=== PATIENT | female | born 1965 | race African-American/Black ===

== ENCOUNTER 2016-12-26 12:07 | Emergency (ER) | payer OTHER ==
[2016-12-26 12:13] VITALS: BMI 35.2
--- NOTE | 2016-12-26 12:28 | PDOC ---
History of Present Illness - General Chief Complaint: Chest Pain Stated Complaint: LEFT SHL SENSATION Time Seen by Provider: 12/26/16 12:12 - History of Present Illness Initial Comments: 12/26/16 17:42 Chief complaint: Difficulty breathing History of present illness: While sitting at work today, the patient experienced a sensation that she "could not take a deep breath", felt flushed, and felt tightness in her left chest. This lasted several minutes and resolved spontaneously. She has a history of anxiety, panic disorder, PTSD. Review of systems: Denies nausea, diaphoresis, recent URI, cough, sore throat, abdominal pain, vomiting or diarrhea, visual or focal neurologic symptoms, unsteadiness of gait. Remainder systems reviewed and found to be negative Past medical history: Lumpectomy 2003 for breast cancer, chemotherapy and radiation, followed regularly without recurrence. Hysterectomy for dysfunctional uterine bleeding. Social history: Anxiety disorder as discussed for. This is improved with her new job. No tobacco alcohol or nonprescription drugs. Fully active and without disability Family history: Reviewed and noncontributory including early coronary artery disease, metabolic disease including diabetes, and cancer Physical exam: Alert and oriented 3, well-developed well-nourished, no acute distress, cheerful and cooperative. No chest pain or shortness of breath at present Afebrile, vital signs normal PERRLA, fundi benign, ENT clear Neck supple without bruit mass or nodes Chest clear with full breath sounds throughout bilaterally, no splinting with deep inspiration, no wheezes rales or rhonchi, no tachypnea or dyspnea CV S1 and S2 normal without murmur rub or gallop pulses full and symmetric no JVD or edema regular 80/m Abdomen soft nontender without mass or organomegaly. Extremities no CCE Skin clear, no rash, adequate turgor and what mucous membranes Neurological C2 to 12 intact. Strength full and symmetric. No focal sensory or motor deficits. Gait stable and unimpaired Impression: Probable anxiety/hyperventilation. Signs and symptoms are not consistent with cardiac etiology, and risk factors are negligible Plan: EKG and enzymes, CBC and chemistry, observation. Past History - Past Medical History Allergies/Adverse Reactions: Allergies Allergy/AdvReac Type Severity Reaction Status Date / Time mold Allergy Verified 12/26/16 12:09 No Known Drug Allergies Allergy Verified 12/26/16 12:09 pollen extracts Allergy Verified 02/06/17 12:09 NUTS Allergy Severe Difficulty Uncoded 12/26/16 12:09 Breathing DUST Allergy Uncoded 12/26/16 12:09 Home Medications: Ambulatory Orders NK [No Known Home Medication] 12/26/16 Anemia: Yes (IRON DEFICIENCY ANEMIA) Asthma: Yes Cancer: Yes (RIGHT BREAST) Cardiac Disorders: Yes CVA: No CHF: No Dementia: No Diabetes: No GI Disorders: Yes (GERD/REFLUX,HIATAL HERNIA) Disorders: No HTN: No Hypercholesterolemia: No Liver Disease: No Psychiatric Problems: Yes (PTSD) Seizures: No Thyroid Disease: No - Surgical History Abdominal Surgery: Yes (GASTRIC BYPASS, Hernia Mesh) Appendectomy: No Cardiac Surgery: No Cholecystectomy: No Lung Surgery: No Neurologic Surgery: No Orthopedic Surgery: No - Family Disease History Family Disease History: CA: Grandparents - Immunization History Td Vaccination: Yes TDAP Vaccination: Yes Immunization Up to Date: Yes - Psycho/Social/Smoking Cessation Hx Anxiety: No Suicidal Ideation: No Smoking Status: No Smoking History: Never smoked Have you smoked in the past 12 months: No Number of Cigarettes Smoked Daily: 0 If you are a former smoker, when did you quit?: 13 years ago Cigars Per Day: 0 Hx Alcohol Use: Yes Drug/Substance Use Hx: No Substance Use Type: Alcohol Hx Substance Use Treatment: No Cardiac Specific PMH - Complaint Specific PMHX Abdominal Aortic Aneurysm: No Angina: No Cardiac Arrhythmia: No Cardiac Stent: No GERD: No Pacemaker: No Pulmonary Embolus: No Valvular Heart Disease: No Peripheral Vascular Disease: No *Physical Exam - Vital Signs Last Vital Signs Temp Pulse Resp BP Pulse Ox 71 18 128/70 98 12/26/16 13:10 12/26/16 13:10 12/26/16 13:10 12/26/16 13:10 ED Treatment Course - LABORATORY CBC & Chemistry Diagram: 12/26/16 12:59 12/26/16 12:55 - ADDITIONAL ORDERS Additional order review: Laboratory Results 12/26/16 12/26/16 12/26/16 12:59 12:59 12:59 INR Cancelled Sodium Cancelled Potassium Cancelled Chloride Cancelled Carbon Dioxide Cancelled Anion Gap Cancelled BUN Cancelled Creatinine Cancelled Creat Clearance w eGFR Cancelled Random Glucose Cancelled Calcium Cancelled Total Bilirubin Cancelled AST Cancelled ALT Cancelled Alkaline Phosphatase Cancelled Creatine Kinase Cancelled Troponin I Cancelled Total Protein Cancelled Albumin Cancelled 12/26/16 12/26/16 12/26/16 12:55 12:55 12:25 INR Sodium 136 Potassium 4.1 Chloride 102 Carbon Dioxide 26 Anion Gap 8 BUN 17 D Creatinine 0.8 D Creat Clearance w eGFR > 60 Random Glucose 96 Calcium 10.1 Total Bilirubin 0.4 D AST 28 D ALT 19 D Alkaline Phosphatase 65 D Creatine Kinase 120 Cancelled Troponin I < 0.03 L Cancelled Total Protein 7.3 Albumin 4.3 12/26/16 12/26/16 12:25 12:25 INR Cancelled Sodium Cancelled Potassium Cancelled Chloride Cancelled Carbon Dioxide Cancelled Anion Gap Cancelled BUN Cancelled Creatinine Cancelled Creat Clearance w eGFR Cancelled Random Glucose Cancelled Calcium Cancelled Total Bilirubin Cancelled AST Cancelled ALT Cancelled Alkaline Phosphatase Cancelled Creatine Kinase Troponin I Total Protein Cancelled Albumin Cancelled 12/26/16 12/26/16 12:59 12:25 RBC 4.48 Cancelled MCV 86.6 Cancelled MCHC 32.9 Cancelled RDW 13.6 Cancelled MPV 9.5 D Cancelled Neutrophils % 58.1 Cancelled Lymphocytes % 28.8 Cancelled Monocytes % 5.7 Cancelled Eosinophils % 5.7 H D Cancelled Basophils % 1.7 Cancelled Medical Decision Making - Medical Decision Making 12/26/16 15:27 EKG reviewed: Normal sinus rhythm 79/m. Normal axes and intervals. No ST-T wave changes. Normal EKG Laboratories reviewed. No significant abnormalities. Normal cardiac enzymes Patient remained stable. No further symptoms during observation. Reassured. Return to ER if symptoms recur. Otherwise follow-up with primary physician Patient fully ambulatory and in no pain or other discomfort upon discharge with her daughter to follow-up as needed. 12/26/16 17:47 *DC/Admit/Observation/Transfer Diagnosis at time of Disposition: Chest pain, non-cardiac - Discharge Dispostion Disposition: HOME Condition at time of disposition: Improved Admit: No - Patient Instructions Printed Discharge Instructions: DI for Atypical Chest Pain - Post Discharge Activity Work/School Note: Back to Work
[2016-12-26 13:30] LABS: BASOPHIL 1.7 % (0-2.0); EOSINOPHIL 5.7 % (0-4.5); MCH 28.5 pg (25.7-33.7); MCHC 32.9 g/dl (32.0-36.0); MEAN CELL VOLUME 86.6 fl (80-96); MEAN PLT VOLUME 9.5 fl (7.5-11.1); NEUTROPHILS 58.1 % (42.8-82.8); PLATELET COUNT 306 K/MM3 (134-434); RDW 13.6 % (11.6-15.6); WHITE BLOOD COUNT 4.9 K/mm3 (4.0-10.0)
[2016-12-26 14:23] LABS: ALBUMIN 4.3 g/dl (3.5-5.0); ALK PHOS 65 U/L (32-92); ANION GAP 8 (8-16); BILIRUBIN,TOTAL 0.4 mg/dl (0.2-1.0); CALCIUM 10.1 mg/dl (8.4-10.2); CO2 26 mmol/L (22-28); CPK(DFH) 120 IU/L (26-140); CREATININE 0.8 mg/dl (0.6-1.3); GLUCOSE,RANDOM 96 mg/dl (74-106); SGOT/AST 28 U/L (10-42); SGPT/ALT 19 U/L (10-40); TOT PROT 7.3 g/dl (6.4-8.3)
[2016-12-26 14:48] LABS: TROPONIN I (DFP) < 0.03 ng/ml (0.03-0.50)
[2016-12-26 14:52] VITALS: BP 128/70; PULSE 71
--- NOTE | 2016-12-26 15:45 | EKG ---
Test Reason : Blood Pressure : / mmHG Vent. Rate : 079 BPM Atrial Rate : 079 BPM P-R Int : 136 ms QRS Dur : 076 ms QT Int : 396 ms P-R-T Axes : 072 015 019 degrees QTc Int : 454 ms SINUS RHYTHM EARLY REPOLARIZATION WHEN COMPARED WITH ECG OF 13-DEC-2015 14:32, NO SIGNIFICANT CHANGE WAS FOUND Confirmed by SOWMYA CASTANON MD ([id number]) on 12/26/2016 3:44:32 PM Referred By: AMANDA BAILEY Confirmed By:SOWMYA CASTANON MD
== END 2016-12-26 15:32 | disposition home or self-care (01) ==
LOC: FER 12:07
DX: R07.89 Other chest pain (principal); Z98.84 Bariatric surgery status; F41.9 Anxiety disorder, unspecified; F43.10 Post-traumatic stress disorder, unspecified; Z85.3 Personal history of malignant neoplasm of breast; K21.9 Gastro-esophageal reflux disease without esophagitis; Z87.891 Personal history of nicotine dependence
CPT/HCPCS: 36415; 80053; 82550; 84484; 85025; 93005; 99283-25

== ENCOUNTER 2017-03-29 20:32 | Emergency (ER) | payer OTHER ==
[2017-03-29 20:51] VITALS: BP 139/85; PULSE 69; TEMP 97.9; BMI 35.6
--- NOTE | 2017-03-29 22:35 | PDOC ---
History of Present Illness - General Chief Complaint: Nausea Stated Complaint: EXPOSURE TO VERMIN BY PRODUCT Time Seen by Provider: 03/29/17 21:55 History Source: Patient Exam Limitations: No Limitations - History of Present Illness Initial Comments: 03/29/17 22:41 Chief complaint: Concern regarding exposure to harm to virus Patient 52-year-old female, history of prior breast cancer, no treatment now who lives in a apartment where there is an issue with rats under the deck, and the state is now involved and they're taking it up and taking up the Flip and she is concerned because she feels like it's going through the air and she' s having a reaction to it, although she does not have any fever, shortness of breath, she feels like she can smell it and feel it. Not staying there now. GENERAL/CONSTITUTIONAL: No fever, weakness. dizziness HEAD, EYES, EARS, NOSE AND THROAT: No change in vision. No ear pain or discharge. No sore throat. CARDIOVASCULAR: No chest pain RESPIRATORY: No shortness of breath or cough GASTROINTESTINAL: No pain, nausea, vomiting, diarrhea or constipation GENITOURINARY: No dysuria MUSCULOSKELETAL: No neck or back pain SKIN: No rash NEUROLOGIC: No headache, vertigo, loss of consciousness, or loss of sensation. GENERAL: The patient is awake, alert, and fully oriented, in no acute distress. HEAD: Normal with no signs of trauma. EYES: Pupils equal, round and reactive to light, sclera anicteric, conjunctiva clear. ENT: pharynx: no erythema, no exudate, uvula midline NECK: supple CHEST: clear, nontender, rr ABD: soft, nontender EXTREMITIES: Normal range of motion, no edema. NEUROLOGICAL: Normal speech, normal gait. SKIN: Warm, Dry Past History - Past Medical History Allergies/Adverse Reactions: Allergies Allergy/AdvReac Type Severity Reaction Status Date / Time mold Allergy Verified 03/29/17 20:51 No Known Drug Allergies Allergy Verified 03/29/17 20:51 pollen extracts Allergy Verified 03/29/17 20:51 NUTS Allergy Severe Difficulty Uncoded 03/29/17 20:51 Breathing DUST Allergy Uncoded 03/29/17 20:51 Home Medications: Ambulatory Orders NK [No Known Home Medication] 12/26/16 Anemia: Yes (IRON DEFICIENCY ANEMIA) Asthma: Yes Cancer: Yes (RIGHT BREAST) Cardiac Disorders: Yes CVA: No CHF: No Dementia: No Diabetes: No GI Disorders: Yes (GERD/REFLUX,HIATAL HERNIA) Disorders: No HTN: No Hypercholesterolemia: No Liver Disease: No Psychiatric Problems: Yes (PTSD) Seizures: No Thyroid Disease: No - Surgical History Abdominal Surgery: Yes (GASTRIC BYPASS, Hernia Mesh) Appendectomy: No Cardiac Surgery: No Cholecystectomy: No Lung Surgery: No Neurologic Surgery: No Orthopedic Surgery: No - Family Disease History Family Disease History: [place]: Grandparents - Immunization History Td Vaccination: Yes TDAP Vaccination: Yes Immunization Up to Date: Yes - Psycho/Social/Smoking Cessation Hx Anxiety: No Suicidal Ideation: No Smoking Status: No Smoking History: Never smoked Have you smoked in the past 12 months: No Number of Cigarettes Smoked Daily: 0 If you are a former smoker, when did you quit?: 13 years ago Cigars Per Day: 0 Hx Alcohol Use: No Drug/Substance Use Hx: No Substance Use Type: Alcohol Hx Substance Use Treatment: No *Physical Exam - Vital Signs Last Vital Signs Temp Pulse Resp BP Pulse Ox 97.9 F 69 20 139/85 100 03/29/17 20:48 03/29/17 20:48 03/29/17 20:48 03/29/17 20:48 03/29/17 20:48 Medical Decision Making - Medical Decision Making 03/29/17 22:43 Patient with concern of being exposed to hot to virus from rat Flip and rats under the deck being dug up now. Patient had had some nausea on and off from the odor and concerned it's getting into her body. Discussed with poison control in [facility], they concurred that there are specialized blood tests that can be done to verify whether there was exposure or not. Not have respiratory symptoms, or findings that shows necessity for a chest x-ray tonight. Patient will follow-up with infectious disease doctors tomorrow, discuss with [facility] today and [facility] to make sure proper testing is done. *DC/Admit/Observation/Transfer Diagnosis at time of Disposition: Exposure Qualifiers: Encounter type: initial encounter Qualified Code(s): T75.89XA - Other specified effects of external causes, initial encounter - Discharge Dispostion Disposition: HOME Condition at time of disposition: Stable Admit: No - Referrals Referrals: Chinedu Salcido MD [Primary Care Provider] - Juan Daniel Moore MD [Staff Physician] - Sweta Grajeda MD [Staff Physician] - Vin Meraz MD [Staff Physician] - - Patient Instructions Additional Instructions: You can follow-up with one of the infectious disease doctors listed, discuss further with [facility] or [facility] to get proper testing done for possible exposure from the rats
== END 2017-03-29 22:37 | disposition home or self-care (01) ==
LOC: JERFT 20:32
DX: Z77.29 Contact with and (suspected) exposure to other hazardous substances (principal); B88.8 Other specified infestations; Z85.3 Personal history of malignant neoplasm of breast; K21.9 Gastro-esophageal reflux disease without esophagitis; F43.10 Post-traumatic stress disorder, unspecified
CPT/HCPCS: 99281-25

== ENCOUNTER 2017-05-15 08:08 | Day surgery (SDC) | payer OTHER ==
[2017-05-10 11:15] VITALS: BMI 34.8
[2017-05-15] MEDS ORDERED: PROPOFOL 20 ML ONE ×2 (08:14)
[2017-05-15] MEDS ORDERED: LIDOCAINE HCL/PF 2% SDV 5ML VIAL ONE (08:15)
[2017-05-15 10:14] VITALS: TEMP 98.3
[2017-05-15 10:35] VITALS: BP 120/71; PULSE 69
--- NOTE | 2017-05-17 11:19 | PATH ---
Surgical Pathology Report Patient Name: ANÍBAL BAHENA [facility]. Rec. #: [id number] /Age/Gender: 1965 (Age: 52) / F Account: [id number] Location: [facility]-ENDOSCOPY Taken: 05/15/2017 Received: 05/16/2017 Reported: 05/17/2017 Physicians: Mohit Bennett M.D. Specimen(s) Received GASTRIC POUCH Clinical History GERD History of colon polyps, rule out H. Pylori Final Diagnosis STOMACH, GASTRIC POUCH, BIOPSY: FOCAL MILD CHRONIC GASTRITIS WITH REACTIVE GASTROPATHY. IMMUNOSTAIN FOR H. PYLORI IS NEGATIVE. Electronically Signed Mendoza Marrero M.D. Gross Description Received in formalin, labeled "gastric pouch" are 2 concepcion, irregular portions of soft tissue averaging 0.4 cm. in greatest dimension. The specimens are submitted in toto in one cassette. /05/16/201705/16/2017
== END 2017-05-15 10:37 | disposition home or self-care (01) ==
LOC: FASU-ENDO 08:08
PROVIDERS: ATTEND Internal Medicine Gastroenterology
PROC: 0DJD8ZZ Inspection of Lower Intestinal Tract, Via Natural or Artificial Opening Endoscopic (ICD-10-PCS; principal; 2017-05-15 09:21)
PROC: 0DB68ZX Excision of Stomach, Via Natural or Artificial Opening Endoscopic, Diagnostic (ICD-10-PCS; 2017-05-15 09:21)
DX: Z86.010 Personal history of colon polyps (principal); Z80.0 Family history of malignant neoplasm of digestive organs; Z98.84 Bariatric surgery status; K29.50 Unspecified chronic gastritis without bleeding; K31.9 Disease of stomach and duodenum, unspecified
CPT/HCPCS: 88305-TC; 88342-TC

== ENCOUNTER 2019-02-25 23:06 | Emergency (ER) | payer OTHER ==
[2019-02-25] MEDS ORDERED: DIPHTH,PERTUSS(ACELL),TET 0.5 ML DISP.SYRIN IM ONE (23:12)
--- NOTE | 2019-02-25 23:13 | PDOC ---
History of Present Illness <Sera Blake - Last Filed: 02/25/19 23:29> - General History Source: Patient Exam Limitations: No Limitations - History of Present Illness Initial Comments: 02/25/19 23:35 The patient is a 54 year old female with a significant past medical history of anemia, asthma, breast cancer, GERD, and PTSD who presents to the emergency department with a thumb laceration 45 minutes prior her arrival to the ED. The patient notes she cut her L thumb with a razor while doing her hair. The patient denies any wound healing issues. Patient was unaware if her tetanus immunization was up to date. The patient denies chest pain, shortness of breath, headache or dizziness. The patient denies fever, chills, nausea, vomit, diarrhea or constipation. The patient denies dysuria, frequency, urgency or hematuria. Allergies: Mold, Pollen, Nuts, Dust Past surgical history: GASTRIC BYPASS, and Hernia Mesh Social history: occasional alcohol use PCP: Dr. Che <Geovanny Mello - Last Filed: 02/25/19 23:41> - General Chief Complaint: Injury Stated Complaint: CUT LEFT THUMB WITH RAZOR Time Seen by Provider: 02/25/19 23:11 Past History - Past Medical History Anemia: Yes (IRON DEFICIENCY ANEMIA) Asthma: Yes (SEASONAL) Cancer: Yes (RIGHT BREAST) Cardiac Disorders: No CVA: No COPD: No CHF: No Dementia: No Diabetes: No GI Disorders: Yes (GERD/REFLUX,HIATAL HERNIA) Disorders: No HTN: No Hypercholesterolemia: No Liver Disease: No Psychiatric Problems: Yes (PTSD) Seizures: No Thyroid Disease: No - Surgical History Abdominal Surgery: Yes (GASTRIC BYPASS, Hernia Mesh) Appendectomy: No Cardiac Surgery: No Cholecystectomy: No Lung Surgery: No Neurologic Surgery: No Orthopedic Surgery: No - Family Disease History Family Disease History: [place]: Grandparents - Immunization History Td Vaccination: Yes TDAP Vaccination: Yes Immunization Up to Date: Yes - Suicide/Smoking/Psychosocial Hx Smoking Status: No Smoking History: Former smoker Have you smoked in the past 12 months: No Number of Cigarettes Smoked Daily: 0 If you are a former smoker, when did you quit?: 1990 Cigars Per Day: 0 Hx Alcohol Use: Yes Drug/Substance Use Hx: No Substance Use Type: Alcohol Hx Substance Use Treatment: No <Sera Blake - Last Filed: 02/25/19 23:29> <Geovanny Mello - Last Filed: 02/25/19 23:41> - Past Medical History Allergies/Adverse Reactions: Allergies Allergy/AdvReac Type Severity Reaction Status Date / Time mold Allergy Verified 02/25/19 23:07 No Known Drug Allergies Allergy Verified 02/25/19 23:07 pollen extracts Allergy Verified 02/25/19 23:07 NUTS Allergy Severe Difficulty Uncoded 05/10/17 11:14 Breathing DUST Allergy Uncoded 05/10/17 11:14 Home Medications: Ambulatory Orders Cholecalciferol (Vitamin D3) [Vitamin D -] 400 unit PO DAILY 05/10/17 Ferrous Gluconate [Iron] 256 mg PO DAILY 05/10/17 Multivitamin [Zoo Chews] 1 each PO DAILY 05/10/17 Review of Systems - Review of Systems Able to Perform ROS?: Yes Comments:: 02/25/19 23:37 GENERAL/CONSTITUTIONAL: No fever or chills. No weakness. HEAD, EYES, EARS, NOSE AND THROAT: No change in vision. No ear pain or discharge. No sore throat. CARDIOVASCULAR: No chest pain or shortness of breath. RESPIRATORY: No cough, wheezing, or hemoptysis. GASTROINTESTINAL: No nausea, vomiting, diarrhea or constipation. GENITOURINARY: No dysuria, frequency, or change in urination. MUSCULOSKELETAL: No joint or muscle swelling or pain. No neck or back pain. SKIN: (+) L thumb laceration. No rash NEUROLOGIC: No headache, vertigo, loss of consciousness, or change in strength/ sensation. ENDOCRINE: No increased thirst. No abnormal weight change. HEMATOLOGIC/LYMPHATIC: No anemia, easy bleeding, or history of blood clots. ALLERGIC/IMMUNOLOGIC: No hives or skin allergy. <Geovanny Mello - Last Filed: 02/25/19 23:41> *Physical Exam - Vital Signs Last Vital Signs Temp Pulse Resp BP Pulse Ox 97.6 F 81 16 129/79 100 02/25/19 23:14 02/25/19 23:14 02/25/19 23:14 02/25/19 23:14 02/25/19 23:14 - Physical Exam Comments: 02/25/19 23:37 GENERAL: Awake, alert, and fully oriented, in no acute distress HEAD: No signs of trauma EYES: PERRLA, EOMI, sclera anicteric, conjunctiva clear ENT: Auricles normal inspection, hearing grossly normal, nares patent, oropharynx clear without exudates. Moist mucosa NECK: Normal ROM, supple, no lymphadenopathy, JVD, or masses LUNGS: Breath sounds equal, clear to auscultation bilaterally. No wheezes, and no crackles HEART: Regular rate and rhythm, normal S1 and S2, no murmurs, rubs or gallops ABDOMEN: Soft, nontender, normoactive bowel sounds. No guarding, no rebound. No masses EXTREMITIES: Normal range of motion, no edema. No clubbing or cyanosis. No cords, erythema, or tenderness NEUROLOGICAL: Cranial nerves II through XII grossly intact. Normal speech, normal gait SKIN:(+) 1.5 cm superficial linear laceration of dorsal of the IP joint L thumb. No damage to nail. No other injuries. Warm, Dry, normal turgor, no rashes. <Geovanny Mello - Last Filed: 02/25/19 23:41> *DC/Admit/Observation/Transfer <Sera Blake - Last Filed: 02/25/19 23:29> - Attestations Scribe Attestion: 02/25/19 23:38 Documentation prepared by Geovanny Mello, acting as medical records manager for Sera Blake MD <Geovanny Mello - Last Filed: 02/25/19 23:41> Diagnosis at time of Disposition: Superficial laceration of left hand Qualifiers: Encounter type: initial encounter Qualified Code(s): S61.412A - Laceration without foreign body of left hand, initial encounter - Discharge Dispostion Disposition: HOME Condition at time of disposition: Stable - Referrals Referrals: Chinedu Salcido MD [Primary Care Provider] - - Patient Instructions Printed Discharge Instructions: DI for Laceration Repair With Dermabond Additional Instructions: Keep laceration dry with splint in place for 48 hours After 48 hours, remove splint and gauze Can wet wound after splint removed Return or see your doctor if wound becomes swollen/painful - Post Discharge Activity
[2019-02-25 23:19] VITALS: BP 129/79; PULSE 81; TEMP 97.6; BMI 34.9
== END 2019-02-25 23:37 | disposition home or self-care (01) ==
LOC: FER 23:06
PROC: 0HQGXZZ Repair Left Hand Skin, External Approach (ICD-10-PCS; principal; 2019-02-25)
DX: S61.012A Laceration without foreign body of left thumb without damage to nail, initial encounter (principal); W45.8XXA Other foreign body or object entering through skin, initial encounter; Y93.K3 Activity, grooming and shearing an animal; Y92.89 Other specified places as the place of occurrence of the external cause; J45.909 Unspecified asthma, uncomplicated; Z85.3 Personal history of malignant neoplasm of breast; F43.10 Post-traumatic stress disorder, unspecified; K21.9 Gastro-esophageal reflux disease without esophagitis; Z87.891 Personal history of nicotine dependence; Z98.84 Bariatric surgery status; J45.998 Other asthma; S61.412A Laceration without foreign body of left hand, initial encounter
CPT/HCPCS: 99281-25

== ENCOUNTER 2020-08-22 21:30 | Emergency (ER) | payer OTHER ==
[2020-08-22 21:56] VITALS: BP 148/91; PULSE 76; TEMP 98; BMI 35.7
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
== END 2020-08-23 02:03 | disposition home or self-care (01) ==
LOC: FER 21:30
DX: S16.1XXA Strain of muscle, fascia and tendon at neck level, initial encounter (principal); M25.78 Osteophyte, vertebrae
CPT/HCPCS: 72050-TC-FY; 72125-TC; 99284-25